=== PATIENT | female | born 1955 | race Caucasian/White ===

== ENCOUNTER 2016-10-05 22:01 | Emergency (ER) | payer OTHER ==
[~2016-10-05] VITALS: Ht 162.6 cm; Wt 92.5 kg
[2016-10-05 22:05] VITALS: BP_SYST 163
[2016-10-05] MEDS ORDERED: ONDANSETRON HCL 4 MG/2 ML VIAL IVP ONE (23:00)
[2016-10-05] MEDS ORDERED: NS 500 ML IV ONE (23:00)
[2016-10-06 00:30] VITALS: BP_SYST 140
== END 2016-10-06 00:30 | disposition home or self-care (01) ==
LOC: SED 22:01
DX: R10.84 Generalized abdominal pain (principal); F41.9 Anxiety disorder, unspecified; R11.2 Nausea with vomiting, unspecified; T40.2X5A Adverse effect of other opioids, initial encounter; T42.6X5A Adverse effect of other antiepileptic and sedative-hypnotic drugs, initial encounter; M54.32 Sciatica, left side; Z85.3 Personal history of malignant neoplasm of breast; Z88.6 Allergy status to analgesic agent; Y92.89 Other specified places as the place of occurrence of the external cause
CPT/HCPCS: 93005; 96361; 96374; 99284; J2405; J7040